=== PATIENT | male | born 1990 | race Caucasian/White ===

== ENCOUNTER 2018-07-24 13:20 | Emergency (ER) | payer SELFPAY ==
[~2018-07-24] VITALS: Ht 182.9 cm; Wt 77.1 kg
[~2018-07-24 13:20] MED LIST: AMOX500C2 PO
[2018-07-24] MEDS ORDERED: LACTATED RINGERS 1,000 ML IV ONE (13:32)
[2018-07-24] MEDS ORDERED: ONDANSETRON 4 MG/2 ML (SDV) Z0FRAN IVP ONE (13:45)
[2018-07-24] MEDS ORDERED: KETOROLAC 30 MG/ML VIAL IVP ONE (13:45)
[2018-07-24 14:08] LABS: HEMATOCRIT 47 % (40-54); HEMOGLOBIN 15.8 G/DL (13.3-17.7); MEAN CORPUSCULAR HEMOGLOBIN 31 PG (25-34); MEAN CORPUSCULAR HGB CONC 34 G/DL (32-36); MEAN CORPUSCULAR VOLUME 91 FL (80-99); PLATELET COUNT 190 10^3/uL (130-400); RED CELL DISTRIBUTION WIDTH 12.7 % (10.0-14.5)
[2018-07-24 14:11] LABS: BASOPHILS % (AUTO) 0 % (0-10); EOSINOPHILS % (AUTO) 0 % (0-10); LYMPHOCYTES # (AUTO) 0.4 X 10^3 (1.0-4.0); LYMPHOCYTES % (AUTO) 4 % (12-44); MONOCYTES # (AUTO) 0.4 X 10^3 (0.0-1.0); MONOCYTES % (AUTO) 4 % (0-12); NEUTROPHILS # (AUTO) 9.2 X 10^3 (1.8-7.8); NEUTROPHILS % (AUTO) 92 % (42-75)
[2018-07-24 14:18] LABS: ALANINE AMINOTRANSFERASE 44 U/L (0-55); ALBUMIN 4.4 GM/DL (3.2-4.5); ALKALINE PHOSPHATASE 82 U/L (40-136); BILIRUBIN,TOTAL 0.6 MG/DL (0.1-1.0); BUN/CREATININE RATIO 22; CALCIUM 9.4 MG/DL (8.5-10.1); CARBON DIOXIDE 17 MMOL/L (21-32); CHLORIDE 99 MMOL/L (98-107); CREATININE SERUM 0.91 MG/DL (0.60-1.30); GFR ESTIMATED > 60; GLUCOSE 147 MG/DL (70-105); MAGNESIUM 1.2 MG/DL (1.8-2.4); POTASSIUM 4.3 MMOL/L (3.6-5.0); SODIUM 139 MMOL/L (135-145); TOTAL PROTEIN 7.7 GM/DL (6.4-8.2)
[2018-07-24 14:23] LABS: NEUTROPHILS % (MANUAL) 63 %
[2018-07-24 14:24] LABS: BAND NEUTROPHILS 29 %; LYMPHOCYTES % (MANUAL) 4 %; MONOCYTES % (MANUAL) 4 %
[2018-07-24] MEDS ORDERED: MAGN400T7 PO (14:41)
[2018-07-24] MEDS ORDERED: ONDA4TAB11 SL (14:41)
--- NOTE | 2018-07-24 14:41 | ED General ---
General Chief Complaint: General Problems/Pain Stated Complaint: PT THINKS HE HAS THE FLU - VOMITING/MUSCLE ACHES Nursing Triage Note: Patient reports nasal congestion and cough for 5 days, today began having nausea and muscle aches, reports one episode of emesis so far today, some loose stools. Nursing Sepsis Screen: No Definite Risk Source of Information: Patient Exam Limitations: No Limitations History of Present Illness Date Seen by Provider: Jul 24, 2018 Time Seen by Provider: 13:30 Initial Comments This 28-year-old young man presents to the emergency room with 5 days of illness including cough and congestion. Today he developed nausea, vomiting, diarrhea, and severe muscle aches. Coughing seems to have resolved. He is afebrile at present. He appears very uncomfortable. Allergies and Home Medications Allergies Coded Allergies: No Known Drug Allergies (Unverified , 07/24/18) Home Medications Magnesium Oxide 400 Mg Tablet, 400 MG PO BID Prescribed by: SARAH FERNÁNDEZ on 07/24/18 1441 Ondansetron 4 Mg Tab.rapdis, 4 MG SL Q4H PRN for NAUSEA/VOMITING Prescribed by: SARAH FERNÁNDEZ on 07/24/18 1441 Patient Home Medication List Home Medication List Reviewed: Yes Review of Systems Review of Systems Constitutional: see HPI EENTM: see HPI Respiratory: see HPI Cardiovascular: no symptoms reported Gastrointestinal: see HPI Genitourinary: no symptoms reported Musculoskeletal: see HPI Skin: no symptoms reported Psychiatric/Neurological: No Symptoms Reported Hematologic/Lymphatic: No Symptoms Reported Past Oxtvtab-Slzlec-Lvbavq Hx Past Med/Social Hx: Reviewed and Corrections made Patient Social History Alcohol Use: Denies Use Recreational Drug Use: No Smoking Status: Current Everyday Smoker Type Used: Cigarettes 2nd Hand Smoke Exposure: Yes Recent Foreign Travel: No Contact w/Someone Who Travel: No Recent Infectious Disease Expo: No Recent Hopitalizations: No Physical Abuse: No Sexual Abuse: No Mistreated: No Fear: No Seasonal Allergies Seasonal Allergies: No Past Medical History Surgeries: Yes (Liver Biopsy) Respiratory: No Cardiac: No Neurological: No Genitourinary: No Gastrointestinal: Yes Hepatitis (hepatitis C, untreated) Musculoskeletal: No Endocrine: No HEENT: No Cancer: No Psychosocial: No Blood Disorders: Yes (Hepatitis C) Physical Exam Vital Signs Vital Signs - First Documented 07/24/18 13:25 Temp 99.1 Pulse 93 Resp 18 B/P (MAP) 107/61 (76) Pulse Ox 98 O2 Delivery Room Air Capillary Refill : Less Than 3 Seconds Height, Weight, BMI Height: 6'" Weight: 170lbs. oz. [id number]; BMI Method:Stated General Appearance: WD/WN, Mild Distress HEENT: PERRL/EOMI, TMs Normal, Normal ENT Inspection, Pharynx Normal Neck: Normal Inspection Respiratory: Lungs Clear, Normal Breath Sounds, No Accessory Muscle Use, No Respiratory Distress Cardiovascular: Regular Rate, Rhythm, No Edema, No Murmur Gastrointestinal: Normal Bowel Sounds, Non Tender, Soft Extremity: Normal Inspection, No Pedal Edema Neurologic/Psychiatric: Alert, Oriented x3, No Motor/Sensory Deficits, Normal Mood/Affect, communications writer II-XII Norm as Tested Skin: Normal Color, Warm/Dry Progress/Results/Core Measures Suspected Sepsis Recent Fever Within 48 Hours: No Infection Criteria Present: None New/Unexplained Altered Menta: No Sepsis Screen: No Definite Risk SIRS Temperature:99.1 Pulse: 93 Respiratory Rate: 18 Laboratory Tests 07/24/18 13:41: White Blood Count 10.0 Blood Pressure 107 /61 Mean: 76 Laboratory Tests 07/24/18 13:41: Creatinine 0.91, Platelet Count 190, Total Bilirubin 0.6 Results/Orders Lab Results Laboratory Tests Test 07/24/18 13:41 Range/Units White Blood Count 10.0 4.3-11.0 10^3/uL Red Blood Count 5.15 4.35-5.85 10^6/uL Hemoglobin 15.8 13.3-17.7 G/DL Hematocrit 47 40-54 % Mean Corpuscular Volume 91 80-99 FL Mean Corpuscular Hemoglobin 31 25-34 PG Mean Corpuscular Hemoglobin Concent 34 32-36 G/DL Red Cell Distribution Width 12.7 10.0-14.5 % Platelet Count 190 130-400 10^3/uL Mean Platelet Volume 9.0 7.4-10.4 FL Neutrophils (%) (Auto) 92 H 42-75 % Lymphocytes (%) (Auto) 4 L 12-44 % Monocytes (%) (Auto) 4 0-12 % Eosinophils (%) (Auto) 0 0-10 % Basophils (%) (Auto) 0 0-10 % Neutrophils # (Auto) 9.2 H 1.8-7.8 X 10^3 Lymphocytes # (Auto) 0.4 L 1.0-4.0 X 10^3 Monocytes # (Auto) 0.4 0.0-1.0 X 10^3 Eosinophils # (Auto) 0.0 0.0-0.3 10^3/uL Basophils # (Auto) 0.0 0.0-0.1 10^3/uL Neutrophils % (Manual) 63 % Lymphocytes % (Manual) 4 % Monocytes % (Manual) 4 % Band Neutrophils 29 % Sodium Level 139 135-145 MMOL/L Potassium Level 4.3 3.6-5.0 MMOL/L Chloride Level 99 98-107 MMOL/L Carbon Dioxide Level 17 L 21-32 MMOL/L Anion Gap 23 H 5-14 MMOL/L Blood Urea Nitrogen 20 H 7-18 MG/DL Creatinine 0.91 0.60-1.30 MG/DL Estimat Glomerular Filtration Rate > 60 BUN/Creatinine Ratio 22 Glucose Level 147 H 70-105 MG/DL Calcium Level 9.4 8.5-10.1 MG/DL Corrected Calcium 9.1 8.5-10.1 MG/DL Magnesium Level 1.2 L 1.8-2.4 MG/DL Total Bilirubin 0.6 0.1-1.0 MG/DL Aspartate Amino Transf (AST/SGOT) 20 5-34 U/L Alanine Aminotransferase (ALT/SGPT) 44 0-55 U/L Alkaline Phosphatase 82 40-136 U/L Total Protein 7.7 6.4-8.2 GM/DL Albumin 4.4 3.2-4.5 GM/DL Micro Results Microbiology 07/24/18 Influenza Types A,B Antigen (ELEANOR) - Final, Complete My Orders Orders - SARAH GOMEZ MD Influenza A And B Antigens (07/24/18 13:26) Ketorolac Injection (Toradol Injection) (07/24/18 13:45) Lactated Ringers (Lr 1000 Ml Iv Solution (07/24/18 13:32) Ondansetron Injection (Zofran Injectio (07/24/18 13:45) Cbc With Automated Diff (07/24/18 13:32) Comprehensive Metabolic Panel (07/24/18 13:32) Magnesium (07/24/18 13:32) Saline Lock/Iv-Start (07/24/18 13:32) Manual Differential (07/24/18 13:41) Magnesium Oxide Tablet (Mag Ox Tablet) (07/24/18 14:45) Medications Given in ED Current Medications Medications Dose Ordered Sig/Latrell Route Start Time Stop Time Status Last Admin Dose Admin Ketorolac Tromethamine 30 mg ONCE ONCE IVP 07/24/18 13:45 07/24/18 13:46 DC 07/24/18 13:48 30 MG Lactated Ringer's 1,000 ml @ 0 mls/hr Q0M ONCE IV 07/24/18 13:32 07/24/18 13:36 DC 07/24/18 13:50 1,000 MLS/HR Ondansetron HCl 8 mg ONCE ONCE IVP 07/24/18 13:45 07/24/18 13:46 DC 07/24/18 13:50 8 MG Vital Signs/I&O 07/24/18 13:25 Temp 99.1 Pulse 93 Resp 18 B/P (MAP) 107/61 (76) Pulse Ox 98 O2 Delivery Room Air Capillary Refill : Less Than 3 Seconds Blood Pressure Mean: 76 Progress Note : Progress Note Patient was given Zofran for nausea and vomiting. Toradol was given for myalgias. He was hydrated with 1 L of LR. Labs were assessed. He was found to have hypomagnesemia. Magnesium oxide was given orally to start replacement. Prescriptions for Zofran and Mag-Ox were provided. He was feeling much better at the time of dismissal. Departure Impression Primary Impression: Nausea vomiting and diarrhea Additional Impressions: Myalgia Hypomagnesemia Disposition: 01 HOME, SELF-CARE Condition: Improved Departure-Patient Inst. Decision time for Depature: 14:38 Referrals: NO,LOCAL PHYSICIAN (PCP/Family) Primary Care Physician Patient Instructions: Diarrhea in Adolescents and Adults, Nausea and Vomiting, Adult Add. Discharge Instructions: Drink plenty of clear liquids. Gradually advance your diet with small quantities of bland food as tolerated. Use Zofran (ondansetron) as prescribed for nausea and vomiting. For pain you may take ibuprofen up to 600 mg every 6 hours as needed and/or Tylenol (acetaminophen) up to 1000 mg every 6 hours. Return to care if you have worsening symptoms. Avoid milk products for at least 24 hours after diarrhea resolves. All discharge instructions reviewed with patient and/or family. Voiced understanding. Scripts Ondansetron (Ondansetron Odt) 4 Mg Tab.rapdis 4 MG SL Q4H PRN for NAUSEA/VOMITING, #10 TAB Prov: SARAH GOMEZ MD 07/24/18 Magnesium Oxide (Magnesium Oxide) 400 Mg Tablet 400 MG PO BID, #10 TAB Prov: SARAH GOMEZ MD 07/24/18 SARAH GOMEZ MD Jul 24, 2018 14:41
[2018-07-24] MEDS ORDERED: MAGNESIUM OXIDE (MAG-OX)400 MG TAB PO ONE (14:45)
[2018-07-24 14:50] VITALS: BP 107/64
== END 2018-07-24 14:50 | disposition home or self-care (01) ==
LOC: ER FS 13:22
DX: R11.2 Nausea with vomiting, unspecified (principal); M79.10 Myalgia, unspecified site; E83.42 Hypomagnesemia; F17.210 Nicotine dependence, cigarettes, uncomplicated; Z98.890 Other specified postprocedural states
CPT/HCPCS: 36415; 80053; 83735; 85007; 85027; 87804

== ENCOUNTER 2019-04-26 14:55 | Emergency (ER) | payer OTHER ==
[~2019-04-26] VITALS: Ht 184 cm; Wt 67.6 kg
[~2019-04-26 14:55] MED LIST changes: +MAGN400T7 PO; +ONDA4TAB11 SL
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
[2019-04-26] MEDS ORDERED: ACETAMINOPHEN 500 MG TAB (TYLENOL) PO ONE (15:30)
[2019-04-26] MEDS ORDERED: diphenhydrAMINE 25 MG TAB (BENADRYL) PO ONE (15:30)
[2019-04-26] MEDS ORDERED: PROCHLORPERAZINE 10 MG TAB (COMPAZINE) PO ONE (15:30)
[2019-04-26] MEDS ORDERED: KETOROLAC 60 MG/2 ML VIAL IM ONE (15:30)
[2019-04-26] MEDS ORDERED: BENZ-13 PO (15:52)
[2019-04-26 16:15] VITALS: BP 129/67
== END 2019-04-26 16:15 | disposition home or self-care (01) ==
LOC: EDUNIT# 14:55 → MERGE 14:58 → ER FS 14:58
DX: J06.9 Acute upper respiratory infection, unspecified (principal); G43.909 Migraine, unspecified, not intractable, without status migrainosus; F17.210 Nicotine dependence, cigarettes, uncomplicated
CPT/HCPCS: 87430; 87804; 96372

== ENCOUNTER → 2019-11-10 | Outpatient (CLI) | payer BC ==
[~2019-11-10] MED LIST changes: +BENZ-13 PO
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
== END ==
LOC: RAD FS 18:03
PROVIDERS: ATTEND Nurse Practitioner
DX: R20.2 Paresthesia of skin (principal); Z87.828 Personal history of other (healed) physical injury and trauma; M43.8X2 Other specified deforming dorsopathies, cervical region
CPT/HCPCS: 72040